=== PATIENT | male | born 1945 | race Caucasian/White ===

== ENCOUNTER 2022-01-28 11:14 | Inpatient (IN) | payer MEDICARE, OTHER ==
[~2022-01-28] VITALS: Ht 177.8 cm; Wt 59.0 kg
[~2022-01-28 11:14] MED LIST: LEVOTHYROXINE200 MC1 PO; Z FERROUS GLUCON PO; Z.0.GEMFIBROZIL600 M PO; Z.0.OMEPRAZOLE20 M1 PO; Z.0.SIMVASTATIN40 MG PO; [UNRECOGNIZED DRUG - OTHER] PO
[2022-01-28] MEDS ORDERED: SODIUM CHLORIDE FLUSH 10 ML SYR IV PRN (12:15)
[2022-01-28 12:21] LABS: BASOPHILS % 0.4 % (0.0-1.0); EOSINOPHILS # (AUTO) 0.4 (0.0-0.4); EOSINOPHILS % 4.2 % (0.0-6.0); HEMATOCRIT 35.5 % (38.2-49.6); HEMOGLOBIN 11.9 g/dL (14.0-18.0); LYMPHOCYTES % 23.5 % (18.0-39.1); MEAN CORPUSCULAR HEMOGLOBIN 30.8 pg (28-32); MEAN CORPUSCULAR HGB CONC 33.5 g/dL (31-35); MONOCYTES # (AUTO) 0.9 (0.2-0.8); NEUTROPHILS # (AUTO) 5.1 (2.1-6.9); NEUTROPHILS % 60.7 % (38.7-80.0); PLATELET COUNT 515 x10e3/uL (140-360); RED BLOOD COUNT 3.86 x10e6/uL (4.3-5.7); RED CELL DISTRIBUTION WIDTH 13.5 % (11.7-14.4)
[2022-01-28 12:35] LABS: PARTIAL THROMBOPLASTIN TIME 31.5 seconds (23.8-35.5)
[2022-01-28 12:40] LABS: INR 0.98; PROTHROMBIN TIME 13.9 seconds (11.9-14.5)
[2022-01-28 12:45] LABS: ALANINE AMINOTRANSFERASE 30 IU/L (0-55); ALBUMIN 2.6 g/dL (3.5-5.0); ALBUMIN/GLOBULIN RATIO 0.5 (0.8-2.0); ALKALINE PHOSPHATASE 79 IU/L (40-150); ANION GAP 13.2 mmol/L (8-16); BLOOD UREA NITROGEN 15 mg/dL (7-26); BUN/CREATININE RATIO 25 (6-25); CALCIUM 10.6 mg/dL (8.4-10.2); CARBON DIOXIDE 25 mmol/L (22-29); CHLORIDE 95 mmol/L (98-107); CREATINE KINASE 12 IU/L (30-200); EST GLOMERULAR FILTRATION RATE 131 ML/MIN (60-); GLUCOSE 88 mg/dL (74-118); POTASSIUM 3.2 mmol/L (3.5-5.1); SODIUM 130 mmol/L (136-145)
[2022-01-28] MEDS: SODIUM CHLORIDE 0.9% 1000ML 1,000 ML IV SCH ×2 (12:57→22:30)
[2022-01-28 13:25] LABS: AMPHETAMINES SCREEN,URINE NEGATIVE (NEGATIVE); BENZODIAZEPINES SCREEN,URINE NEGATIVE (NEGATIVE); PHENCYCLIDINE SCREEN,URINE NEGATIVE (NEGATIVE)
[2022-01-28 13:26] LABS: CLARITY,URINE CLEAR (CLEAR); COLOR,URINE YELLOW (YELLOW); LEUKOCYTE ESTERASE ,URINE NEGATIVE (NEGATIVE)
[2022-01-28 13:27] LABS: KETONES,URINE NEGATIVE (NEGATIVE); NITRITE,URINE NEGATIVE (NEGATIVE); PROTEIN,URINE DIPSTICK NEGATIVE (NEGATIVE); URINE UROBILINOGEN 0.2 mg/dL (0.2 - 1)
[2022-01-28 13:30] LABS: AMORPHOUS SEDIMENT,URINE FEW (FEW); BACTERIA,URINE MODERATE /HPF; EPITHELIAL CELLS,URINE FEW /LPF; RBC,URINE 0-5 /HPF (0-5); WBC,URINE (MAN) 0-5 /HPF (0-5)
[2022-01-28] MEDS ORDERED: ONDANSETRON HCL INJ 2MG/ML 2ML 2 MG/ML VIAL IV PRN (16:15)
[2022-01-29 07:07] LABS: BASOPHILS % 0.4 % (0.0-1.0); EOSINOPHILS # (AUTO) 0.2 (0.0-0.4); EOSINOPHILS % 3.2 % (0.0-6.0); HEMATOCRIT 34.9 % (38.2-49.6); HEMOGLOBIN 11.5 g/dL (14.0-18.0); LYMPHOCYTES # (AUTO) 1.4 (1.0-3.2); MEAN CORPUSCULAR HEMOGLOBIN 30.7 pg (28-32); MEAN CORPUSCULAR VOLUME 93.3 fL (81-99); MONOCYTES # (AUTO) 0.8 (0.2-0.8); MONOCYTES % 12.2 % (4.4-11.3); NEUTROPHILS # (AUTO) 4.3 (2.1-6.9); NEUTROPHILS % 62.9 % (38.7-80.0); PLATELET COUNT 435 x10e3/uL (140-360); RED BLOOD COUNT 3.74 x10e6/uL (4.3-5.7); RED CELL DISTRIBUTION WIDTH 13.4 % (11.7-14.4)
[2022-01-29 08:35] LABS: ALBUMIN 2.8 g/dL (3.5-5.0); ALBUMIN/GLOBULIN RATIO 0.6 (0.8-2.0); ANION GAP 14.8 mmol/L (8-16); CREATININE, SERUM 0.6 mg/dL (0.72-1.25); POTASSIUM 3.8 mmol/L (3.5-5.1)
[2022-01-29] MEDS: SODIUM CHLORIDE 0.9% 1000ML 1,000 ML IV SCH ×2 (08:49→16:23)
[2022-01-29] MEDS ORDERED: ASPIRIN81 MG PO (10:14)
[2022-01-29] MEDS ORDERED: FLUDROCORTISON0.1 MG PO (10:14)
[2022-01-29] MEDS ORDERED: PANTOPRAZOLE SO40 MG PO (10:14)
[2022-01-29] MEDS ORDERED: SODIUM CHLORI1000 ML PO (10:14)
[2022-01-29] MEDS ORDERED: FLOMAX0.4 MG PO (10:14)
[2022-01-29] MEDS ORDERED: MEGESTROL ACETA40 MG PO (10:14)
[2022-01-29] MEDS ORDERED: ATORVASTATIN CA20 MG PO (10:15)
[2022-01-29 14:11] VITALS: BP 121/72
[2022-01-29 14:54] VITALS: BP 121/72
[2022-01-29 14:59] VITALS: BP 121/72
[2022-01-29] MEDS: MEGESTROL ACETATE 40 MG TAB PO SCH (16:23)
[2022-01-29] MEDS: FLUDROCORTISONE ACETATE 0.1 MG TAB PO SCH (16:23)
[2022-01-29 16:26] VITALS: BP 148/81
[2022-01-29] MEDS ORDERED: Vancomycin IV 1 GM in SODIUM CHLORIDE 0.9% 250ML 250 ML IV ONE (18:45)
[2022-01-29] MEDS ORDERED: Vancomycin IV 1 GM in SODIUM CHLORIDE 0.9% 250ML 250 ML IV SCH (19:45)
[2022-01-29 20:00] VITALS: BP 143/80
[2022-01-29] MEDS: ATORVASTATIN 20 MG TAB PO SCH (20:49)
[2022-01-30] VITALS (8 sets, daily range): BP systolic 102–149; BP diastolic 60–99
[2022-01-30] MEDS: LEVOTHYROXINE SODIUM 125 MCG TAB PO SCH (06:00)
[2022-01-30] MEDS: LEVOTHYROXINE SODIUM 100 MCG TAB PO SCH (06:00)
[2022-01-30] MEDS: SODIUM CHLORIDE 0.9% 1000ML 1,000 ML IV SCH ×2 (06:00→17:09)
[2022-01-30] MEDS: PANTOPRAZOLE SOD 40 MG TABEC PO SCH (09:48)
[2022-01-30] MEDS: TAMSULOSIN HCL 0.4 MG CAP PO SCH (09:48)
[2022-01-30] MEDS: MEGESTROL ACETATE 40 MG TAB PO SCH ×2 (09:48→17:09)
[2022-01-30] MEDS: ASPIRIN 81 MG CHEW TAB PO SCH (09:48)
[2022-01-30] MEDS: FLUDROCORTISONE ACETATE 0.1 MG TAB PO SCH ×2 (09:48→17:09)
[2022-01-30] MEDS: Vancomycin IV 1 GM in SODIUM CHLORIDE 0.9% 250ML 250 ML IV SCH (19:50)
[2022-01-30] MEDS: ATORVASTATIN 20 MG TAB PO SCH (20:23)
[2022-01-31] VITALS (8 sets, daily range): BP systolic 96–161; BP diastolic 54–83
[2022-01-31] MEDS: SODIUM CHLORIDE 0.9% 1000ML 1,000 ML IV SCH ×2 (05:30→10:52)
[2022-01-31] MEDS: LEVOTHYROXINE SODIUM 100 MCG TAB PO SCH (06:00)
[2022-01-31] MEDS: LEVOTHYROXINE SODIUM 125 MCG TAB PO SCH (06:00)
[2022-01-31] MEDS ORDERED: MULTIVITAMINS1 EAC6 PO (08:16)
[2022-01-31] MEDS ORDERED: CEPHALEXIN500 MG PO (08:16)
[2022-01-31] MEDS: PANTOPRAZOLE SOD 40 MG TABEC PO SCH (10:05)
[2022-01-31] MEDS: MEGESTROL ACETATE 40 MG TAB PO SCH ×2 (10:05→17:00)
[2022-01-31] MEDS: TAMSULOSIN HCL 0.4 MG CAP PO SCH (10:05)
[2022-01-31] MEDS: ASPIRIN 81 MG CHEW TAB PO SCH (10:05)
[2022-01-31] MEDS: FLUDROCORTISONE ACETATE 0.1 MG TAB PO SCH ×2 (10:05→17:00)
[2022-01-31] MEDS ORDERED: ONDANSETRON HCL 4 MG ORAL DISINTEGRATING TAB PO PRN (10:15)
[2022-01-31] MEDS: Vancomycin IV 1 GM in SODIUM CHLORIDE 0.9% 250ML 250 ML IV SCH (20:15)
[2022-01-31] MEDS: ATORVASTATIN 20 MG TAB PO SCH (21:00)
[2022-02-01] VITALS: BP 132/76
[2022-02-01] MEDS: SODIUM CHLORIDE 0.9% 1000ML 1,000 ML IV SCH ×2 (01:00→09:37)
[2022-02-01 04:00] VITALS: BP 117/78
[2022-02-01] MEDS: LEVOTHYROXINE SODIUM 125 MCG TAB PO SCH (05:47)
[2022-02-01] MEDS: LEVOTHYROXINE SODIUM 100 MCG TAB PO SCH (05:47)
[2022-02-01 07:49] VITALS: BP 127/71
[2022-02-01 07:58] VITALS: BP 127/71
[2022-02-01] MEDS: PANTOPRAZOLE SOD 40 MG TABEC PO SCH (09:28)
[2022-02-01] MEDS: MEGESTROL ACETATE 40 MG TAB PO SCH (09:28)
[2022-02-01] MEDS: FLUDROCORTISONE ACETATE 0.1 MG TAB PO SCH (09:28)
[2022-02-01] MEDS: ASPIRIN 81 MG CHEW TAB PO SCH (09:28)
[2022-02-01] MEDS: TAMSULOSIN HCL 0.4 MG CAP PO SCH (09:28)
[2022-02-01 11:45] VITALS: BP 110/62
[2022-02-01 15:59] VITALS: BP 103/66
== END 2022-02-01 16:42 | DRG 689 ==
LOC: ER 11:56 → ERHOLD 16:02 → MED/SURG3 01-29 14:00
PROVIDERS: ADMIT Internal Medicine; ATTEND Internal Medicine
DX: N39.0 Urinary tract infection, site not specified (principal); E43 Unspecified severe protein-calorie malnutrition; Z68.1 Body mass index [BMI] 19.9 or less, adult; E87.1 Hypo-osmolality and hyponatremia; C45.0 Mesothelioma of pleura; E87.6 Hypokalemia; E83.52 Hypercalcemia; J61 Pneumoconiosis due to asbestos and other mineral fibers; E03.9 Hypothyroidism, unspecified; Z87.891 Personal history of nicotine dependence; Z85.21 Personal history of malignant neoplasm of larynx; E78.5 Hyperlipidemia, unspecified; Z90.02 Acquired absence of larynx; Z20.822 Contact with and (suspected) exposure to COVID-19
CPT/HCPCS: 36415; 70450; 71045; 80053; 80307; 81001; 82550; 82553; 83605; 83880; 83970; 84484; 85025; 85610; 85730; 87040; 87071; 87086; 87205; 93005; 96361; 97139; 99284; J0696; J3370; J7030; J7050; U0002

== ENCOUNTER 2022-06-03 14:08 | Inpatient (IN) | payer MEDICARE, OTHER ==
[~2022-06-03] VITALS: Ht 177.8 cm; Wt 54.4 kg
[~2022-06-03 14:08] MED LIST changes: +ASPIRIN81 MG PO; +ATORVASTATIN CA20 MG PO; +CEPHALEXIN500 MG PO; +FLOMAX0.4 MG PO; +FLUDROCORTISON0.1 MG PO; +MEGESTROL ACETA40 MG PO; +MULTIVITAMINS1 EAC6 PO; +PANTOPRAZOLE SO40 MG PO; +SODIUM CHLORI1000 ML PO
[2022-06-03] MEDS ORDERED: DILTIAZEM HCL 5 MG/ML 5 ML VIAL IV STA (14:29)
[2022-06-03] MEDS ORDERED: SODIUM CHLORIDE 0.9% 1000ML 1,000 ML IV STA (14:29)
[2022-06-03] MEDS ORDERED: DILTIAZEM HCL VIAL 5 ML ONE (14:38)
[2022-06-03] MEDS ORDERED: SODIUM CHLORIDE 0.9% 1000ML 1,000 ML ONE (14:41)
[2022-06-03 14:44] LABS: BASOPHILS % 0.2 % (0.0-1.0); HEMATOCRIT 32.6 % (38.2-49.6); HEMOGLOBIN 11.1 g/dL (14.0-18.0); LYMPHOCYTES # (AUTO) 1.2 (1.0-3.2); LYMPHOCYTES % 6.6 % (18.0-39.1); MEAN CORPUSCULAR HEMOGLOBIN 29.5 pg (28-32); MEAN CORPUSCULAR VOLUME 86.7 fL (81-99); MONOCYTES # (AUTO) 1.3 (0.2-0.8); MONOCYTES % 7.2 % (4.4-11.3); NEUTROPHILS # (AUTO) 15.1 (2.1-6.9); NEUTROPHILS % 85.5 % (38.7-80.0); PLATELET COUNT 251 x10e3/uL (140-360); RED BLOOD COUNT 3.76 x10e6/uL (4.3-5.7); RED CELL DISTRIBUTION WIDTH 14.9 % (11.7-14.4)
[2022-06-03 14:48] LABS: INR 1.1; PROTHROMBIN TIME 15.2 seconds (11.9-14.5)
[2022-06-03 14:57] LABS: ALBUMIN 2.8 g/dL (3.5-5.0); ALBUMIN/GLOBULIN RATIO 0.9 (0.8-2.0); ANION GAP 21.4 mmol/L (8-16); CALCIUM 8.6 mg/dL (8.4-10.2); CREATININE, SERUM 0.8 mg/dL (0.72-1.25); POTASSIUM 3.4 mmol/L (3.5-5.1)
[2022-06-03 14:59] LABS: MAGNESIUM 1.1 MG/DL (1.3-2.1)
[2022-06-03] MEDS ORDERED: METOPROLOL TARTRATE INJ 1 MG/ML VIAL IV ONE (15:00)
[2022-06-03 15:05] LABS: CREATINE KINASE MB 1.1 ng/mL (0-5.0)
[2022-06-03] MEDS ORDERED: SODIUM CHLORIDE 0.9% 1000ML 1,000 ML IV ONE (15:30)
[2022-06-03] MEDS ORDERED: MAGNESIUM SULF 1GRAM/DEXTROSE 200 ML IV ONE (15:30)
[2022-06-03] MEDS ORDERED: ENOXAPARIN SODIUM INJ 100 MG/ML SYR SC ONE (15:45)
[2022-06-03] MEDS ORDERED: IOPAMIDOL 370 MG/ML 100 ML INFUS..BTL INJ ONE (15:49)
[2022-06-03] MEDS ORDERED: ENOXAPARIN SOD INJ 60 MG/0.6 ML SYR SC ONE (17:01)
[2022-06-03] MEDS: FAMOTIDINE 20 MG/2 ML VIAL IV SCH (17:45)
[2022-06-03] MEDS: METOPROLOL TARTRATE 25 MG TAB PO SCH ×2 (17:45→20:11)
[2022-06-03] MEDS: KCL 20MEQ/.9 SOD CHL 1,000 ML IV SCH (17:53)
[2022-06-03 19:39] VITALS: BP 97/59
[2022-06-03 20:00] VITALS: BP 97/59
[2022-06-03] MEDS: FLUDROCORTISONE ACETATE 0.1 MG TAB PO SCH (20:10)
[2022-06-03] MEDS: ATORVASTATIN 40 MG TAB PO SCH (20:10)
[2022-06-03] MEDS: MEGESTROL ACETATE 40 MG TAB PO SCH (20:10)
[2022-06-03 21:06] LABS: CLARITY,URINE CLEAR (CLEAR); COLOR,URINE YELLOW (YELLOW)
[2022-06-03 21:07] LABS: BACTERIA,URINE RARE /HPF; EPITHELIAL CELLS,URINE RARE /LPF; KETONES,URINE 2+ (NEGATIVE); LEUKOCYTE ESTERASE ,URINE NEGATIVE (NEGATIVE); NITRITE,URINE NEGATIVE (NEGATIVE); PROTEIN,URINE DIPSTICK NEGATIVE (NEGATIVE); RBC,URINE 0-5 /HPF (0-5); URINE UROBILINOGEN 0.2 mg/dL (0.2 - 1); WBC,URINE (MAN) 0-5 /HPF (0-5)
[2022-06-03 21:48] VITALS: BP 97/57
[2022-06-04] VITALS (8 sets, daily range): BP systolic 109–138; BP diastolic 63–78
[2022-06-04] MEDS: KCL 20MEQ/.9 SOD CHL 1,000 ML IV SCH (04:53)
[2022-06-04] MEDS: FAMOTIDINE 20 MG/2 ML VIAL IV SCH ×2 (05:29→17:33)
[2022-06-04 07:08] LABS: BASOPHILS % 0.1 % (0.0-1.0); EOSINOPHILS # (AUTO) 0.1 (0.0-0.4); EOSINOPHILS % 1.5 % (0.0-6.0); HEMATOCRIT 28.4 % (38.2-49.6); HEMOGLOBIN 9.4 g/dL (14.0-18.0); LYMPHOCYTES # (AUTO) 1.3 (1.0-3.2); LYMPHOCYTES % 15.3 % (18.0-39.1); MEAN CORPUSCULAR HEMOGLOBIN 29.2 pg (28-32); MEAN CORPUSCULAR HGB CONC 33.1 g/dL (31-35); MEAN CORPUSCULAR VOLUME 88.2 fL (81-99); MONOCYTES # (AUTO) 0.8 (0.2-0.8); MONOCYTES % 9.5 % (4.4-11.3); NEUTROPHILS % 73.2 % (38.7-80.0); PLATELET COUNT 226 x10e3/uL (140-360); RED BLOOD COUNT 3.22 x10e6/uL (4.3-5.7); RED CELL DISTRIBUTION WIDTH 14.6 % (11.7-14.4)
[2022-06-04 07:40] LABS: ALBUMIN 2.4 g/dL (3.5-5.0); ALBUMIN/GLOBULIN RATIO 0.8 (0.8-2.0); ANION GAP 12.8 mmol/L (8-16); CALCIUM 7.8 mg/dL (8.4-10.2); CHOL/HDL RATIO 3.9 (3.9-4.7); CREATININE, SERUM 0.59 mg/dL (0.72-1.25); MAGNESIUM 1.4 MG/DL (1.3-2.1)
[2022-06-04 07:43] LABS: POTASSIUM 2.8 mmol/L (3.5-5.1)
[2022-06-04 07:50] LABS: CREATINE KINASE MB 4.8 ng/mL (0-5.0)
[2022-06-04] MEDS: ENOXAPARIN SOD INJ 60 MG/0.6 ML SYR SC SCH ×3 (08:15→21:00)
[2022-06-04] MEDS ORDERED: POTASSIUM CHLORIDE 20MEQ/100ML 100 ML IV ONE ×2 (08:23→20:00)
[2022-06-04] MEDS ORDERED: POTASSIUM CHLORIDE 20 MEQ TAB CR PO STA ×2 (08:37→17:45)
[2022-06-04] MEDS: METOPROLOL TARTRATE 25 MG TAB PO SCH ×2 (09:00→21:00)
[2022-06-04] MEDS: ASPIRIN 81 MG ENTERIC COATED PO SCH (09:00)
[2022-06-04] MEDS: MULTIVITAMINS/MINERALS TAB PO SCH (09:00)
[2022-06-04] MEDS: MEGESTROL ACETATE 40 MG TAB PO SCH ×2 (09:00→17:00)
[2022-06-04] MEDS: TAMSULOSIN HCL 0.4 MG CAP PO SCH (09:00)
[2022-06-04] MEDS: FLUDROCORTISONE ACETATE 0.1 MG TAB PO SCH ×2 (09:00→17:00)
[2022-06-04] MEDS: PANTOPRAZOLE SOD 40 MG TABEC PO SCH (09:00)
[2022-06-04] MEDS ORDERED: MAGNESIUM SULFATE 2GM/50ML 50 ML IV ONE (14:15)
[2022-06-04] MEDS ORDERED: SODIUM CHLORIDE 0.9% 250ML 250 ML ONE (15:28)
[2022-06-04 17:11] LABS: CREATINE KINASE MB 11.2 ng/mL (0-5.0)
[2022-06-04] MEDS: ATORVASTATIN 40 MG TAB PO SCH (21:00)
[2022-06-05] VITALS (8 sets, daily range): BP systolic 94–137; BP diastolic 56–80
[2022-06-05] MEDS: FAMOTIDINE 20 MG/2 ML VIAL IV SCH ×2 (05:44→17:24)
[2022-06-05] MEDS: MULTIVITAMINS/MINERALS TAB PO SCH (09:00)
[2022-06-05] MEDS: PANTOPRAZOLE SOD 40 MG TABEC PO SCH (09:00)
[2022-06-05 09:09] LABS: ANION GAP 10.7 mmol/L (8-16); CREATININE, SERUM 0.57 mg/dL (0.72-1.25); MAGNESIUM 1.8 MG/DL (1.3-2.1); PHOSPHORUS 1.8 MG/DL (2.3-4.7)
[2022-06-05 09:14] LABS: POTASSIUM 2.7 mmol/L (3.5-5.1)
[2022-06-05] MEDS: FLUDROCORTISONE ACETATE 0.1 MG TAB PO SCH ×2 (09:41→17:24)
[2022-06-05] MEDS: METOPROLOL TARTRATE 25 MG TAB PO SCH ×2 (09:41→21:00)
[2022-06-05] MEDS: MEGESTROL ACETATE 40 MG TAB PO SCH ×2 (09:43→17:24)
[2022-06-05] MEDS: ASPIRIN 81 MG ENTERIC COATED PO SCH (09:43)
[2022-06-05] MEDS: TAMSULOSIN HCL 0.4 MG CAP PO SCH (09:44)
[2022-06-05] MEDS: ENOXAPARIN SOD INJ 60 MG/0.6 ML SYR SC SCH ×2 (09:48→21:00)
[2022-06-05] MEDS ORDERED: POTASSIUM CHLORIDE 20 MEQ TAB CR PO ONE (11:00)
[2022-06-05] MEDS ORDERED: POTASSIUM CHLORIDE 20MEQ/100ML 100 ML IV ONE (11:00)
[2022-06-05 16:31] LABS: CREATINE KINASE MB 5.2 ng/mL (0-5.0)
[2022-06-05] MEDS: POTASSIUM CHLORIDE 20 MEQ TAB CR PO SCH ×2 (17:16→23:32)
[2022-06-05] MEDS: ATORVASTATIN 40 MG TAB PO SCH (21:00)
[2022-06-06] VITALS (8 sets, daily range): BP systolic 93–131; BP diastolic 55–71
[2022-06-06] MEDS: FAMOTIDINE 20 MG/2 ML VIAL IV SCH (05:03)
[2022-06-06] MEDS: POTASSIUM CHLORIDE 20 MEQ TAB CR PO SCH (05:04)
[2022-06-06 06:13] LABS: ANION GAP 12.4 mmol/L (8-16); BLOOD UREA NITROGEN < 5 mg/dL (7-26); CALCIUM 7.5 mg/dL (8.4-10.2); CARBON DIOXIDE 27 mmol/L (22-29); CHLORIDE 100 mmol/L (98-107); CREATININE, SERUM 0.52 mg/dL (0.72-1.25); GLUCOSE 91 mg/dL (74-118); SODIUM 137 mmol/L (136-145)
[2022-06-06 06:19] LABS: BUN/CREATININE RATIO 10 (6-25)
[2022-06-06 06:21] LABS: POTASSIUM 2.4 mmol/L (3.5-5.1)
[2022-06-06] MEDS ORDERED: POTASSIUM CHLORIDE 20 MEQ TAB CR PO ONE (08:00)
[2022-06-06] MEDS ORDERED: POTASSIUM CHLORIDE 20MEQ/100ML 100 ML IV ONE (08:00)
[2022-06-06] MEDS: ASPIRIN 81 MG ENTERIC COATED PO SCH (10:00)
[2022-06-06] MEDS: FLUDROCORTISONE ACETATE 0.1 MG TAB PO SCH ×2 (10:00→17:53)
[2022-06-06] MEDS: TAMSULOSIN HCL 0.4 MG CAP PO SCH (10:00)
[2022-06-06] MEDS: MULTIVITAMINS/MINERALS TAB PO SCH (10:00)
[2022-06-06] MEDS: METOPROLOL TARTRATE 25 MG TAB PO SCH ×2 (10:00→20:38)
[2022-06-06] MEDS: PANTOPRAZOLE SOD 40 MG TABEC PO SCH (10:00)
[2022-06-06] MEDS: MEGESTROL ACETATE 40 MG TAB PO SCH ×2 (10:00→17:52)
[2022-06-06] MEDS: APIXAB 2.5 MG TABLET PO SCH ×2 (10:00→17:53)
[2022-06-06] MEDS ORDERED: MAGNESIUM SULFATE 2GM/50ML 50 ML IV ONE (12:00)
[2022-06-06] MEDS ORDERED: POTASSIUM CHLORIDE 10MEQ EA PO ONE (17:00)
[2022-06-06] MEDS ORDERED: SODIUM CHLORIDE 0.9% 1000ML 1,000 ML ONE (17:11)
[2022-06-06] MEDS: POTASSIUM CHLORIDE 10MEQ/100ML 100 ML IV SCH ×3 (17:51→20:36)
[2022-06-06] MEDS: FAMOTIDINE 20 MG TAB PO SCH (17:53)
[2022-06-06] MEDS: AZITHROMYCIN 250 MG TAB PO SCH (20:38)
[2022-06-06] MEDS: ATORVASTATIN 40 MG TAB PO SCH (20:39)
[2022-06-06 23:29] LABS: MAGNESIUM 1.8 MG/DL (1.3-2.1)
[2022-06-06 23:30] LABS: POTASSIUM 3.5 mmol/L (3.5-5.1)
[2022-06-06] MEDS ORDERED: POTASSIUM CHLORIDE 20MEQ/15ML UDC NG STA (23:39)
[2022-06-07] VITALS (7 sets, daily range): BP systolic 102–119; BP diastolic 59–75
[2022-06-07] MEDS ORDERED: POTASSIUM CHLORIDE 20MEQ/100ML 100 ML IV ONE ×3 (00:15→15:00)
[2022-06-07 06:08] LABS: ANION GAP 11.8 mmol/L (8-16); BLOOD UREA NITROGEN < 5 mg/dL (7-26); CALCIUM 7.6 mg/dL (8.4-10.2); CARBON DIOXIDE 27 mmol/L (22-29); CHLORIDE 99 mmol/L (98-107); CREATININE, SERUM 0.52 mg/dL (0.72-1.25); GLUCOSE 90 mg/dL (74-118); SODIUM 135 mmol/L (136-145)
[2022-06-07 06:13] LABS: BUN/CREATININE RATIO 10 (6-25)
[2022-06-07 06:15] LABS: POTASSIUM 2.8 mmol/L (3.5-5.1)
[2022-06-07] MEDS: FAMOTIDINE 20 MG TAB PO SCH ×2 (06:19→17:30)
[2022-06-07] MEDS: PANTOPRAZOLE SOD 40 MG TABEC PO SCH (09:27)
[2022-06-07] MEDS: FLUDROCORTISONE ACETATE 0.1 MG TAB PO SCH ×2 (09:27→17:30)
[2022-06-07] MEDS: ASPIRIN 81 MG ENTERIC COATED PO SCH (09:27)
[2022-06-07] MEDS: MULTIVITAMINS/MINERALS TAB PO SCH (09:27)
[2022-06-07] MEDS: MEGESTROL ACETATE 40 MG TAB PO SCH ×2 (09:27→17:30)
[2022-06-07] MEDS: APIXAB 2.5 MG TABLET PO SCH ×2 (09:27→17:30)
[2022-06-07] MEDS: TAMSULOSIN HCL 0.4 MG CAP PO SCH (09:27)
[2022-06-07] MEDS: METOPROLOL TARTRATE 25 MG TAB PO SCH ×2 (09:36→20:29)
[2022-06-07] MEDS: MAGNESIUM OXIDE 400 MG TAB PO SCH ×2 (09:45→17:30)
[2022-06-07] MEDS ORDERED: POTASSIUM CHLORIDE 10MEQ EA PO SCH (10:00)
[2022-06-07] MEDS ORDERED: MAGNESIUM SULFATE 2GM/50ML 100 ML IV ONE (10:00)
[2022-06-07] MEDS: KCL 20 MEQ PACKET/ ORAL SOLN PO SCH ×3 (11:30→20:29)
[2022-06-07] MEDS ORDERED: POTASSIUM CHLORIDE 10MEQ/100ML 100 ML IV ONE (11:30)
[2022-06-07] MEDS ORDERED: CALCIUM GLUCONATE 10% INJ 9.3 MEQ in SODIUM CHLORIDE 0.9% 100 ML IV ONE (14:00)
[2022-06-07] MEDS ORDERED: PEG (High)/E-LYTE SOLN 4,000 ML BTL PO ONE (14:00)
[2022-06-07] MEDS ORDERED: POTASSIUM CHLORIDE 10MEQ/100ML 100 ML INJ ONE (17:00)
[2022-06-07] MEDS: AZITHROMYCIN 250 MG TAB PO SCH (20:28)
[2022-06-07] MEDS: ATORVASTATIN 40 MG TAB PO SCH (20:28)
[2022-06-08] VITALS (7 sets, daily range): BP systolic 109–145; BP diastolic 60–85
[2022-06-08 04:50] LABS: ALANINE AMINOTRANSFERASE 11 IU/L (0-55); ALBUMIN 2.2 g/dL (3.5-5.0); ALBUMIN/GLOBULIN RATIO 0.8 (0.8-2.0); ALKALINE PHOSPHATASE 53 IU/L (40-150); ANION GAP 11.4 mmol/L (8-16); BLOOD UREA NITROGEN < 5 mg/dL (7-26); CALCIUM 8.1 mg/dL (8.4-10.2); CARBON DIOXIDE 25 mmol/L (22-29); CHLORIDE 102 mmol/L (98-107); CREATININE, SERUM 0.53 mg/dL (0.72-1.25); GLUCOSE 94 mg/dL (74-118); MAGNESIUM 1.5 MG/DL (1.3-2.1); PHOSPHORUS 2.7 MG/DL (2.3-4.7); POTASSIUM 3.4 mmol/L (3.5-5.1); SODIUM 135 mmol/L (136-145)
[2022-06-08 04:54] LABS: BUN/CREATININE RATIO 9 (6-25)
[2022-06-08] MEDS: FAMOTIDINE 20 MG TAB PO SCH ×2 (06:46→18:00)
[2022-06-08] MEDS: MEGESTROL ACETATE 40 MG TAB PO SCH ×2 (09:00→17:00)
[2022-06-08] MEDS: MAGNESIUM OXIDE 400 MG TAB PO SCH ×2 (09:00→17:00)
[2022-06-08] MEDS: KCL 20 MEQ PACKET/ ORAL SOLN PO SCH ×2 (09:00→17:00)
[2022-06-08] MEDS: ASPIRIN 81 MG ENTERIC COATED PO SCH (09:00)
[2022-06-08] MEDS: TAMSULOSIN HCL 0.4 MG CAP PO SCH (09:00)
[2022-06-08] MEDS: FLUDROCORTISONE ACETATE 0.1 MG TAB PO SCH ×2 (09:00→17:00)
[2022-06-08] MEDS: METOPROLOL TARTRATE 25 MG TAB PO SCH ×2 (09:00→21:00)
[2022-06-08] MEDS: PANTOPRAZOLE SOD 40 MG TABEC PO SCH (09:00)
[2022-06-08] MEDS: MULTIVITAMINS/MINERALS TAB PO SCH (09:00)
[2022-06-08] MEDS: APIXAB 2.5 MG TABLET PO SCH ×2 (09:00→17:00)
[2022-06-08 16:48] LABS: MAGNESIUM 1.3 MG/DL (1.3-2.1); PHOSPHORUS 2.6 MG/DL (2.3-4.7); POTASSIUM 3.8 mmol/L (3.5-5.1)
[2022-06-08] MEDS: AZITHROMYCIN 250 MG TAB PO SCH (20:52)
[2022-06-08] MEDS: ATORVASTATIN 40 MG TAB PO SCH (21:00)
[2022-06-09 00:28] VITALS: BP 115/56
[2022-06-09 05:02] VITALS: BP 147/69
[2022-06-09] MEDS: FAMOTIDINE 20 MG TAB PO SCH (06:00)
[2022-06-09 06:14] LABS: ANION GAP 12.1 mmol/L (8-16); BLOOD UREA NITROGEN < 5 mg/dL (7-26); CALCIUM 7.9 mg/dL (8.4-10.2); CARBON DIOXIDE 25 mmol/L (22-29); CHLORIDE 102 mmol/L (98-107); CREATININE, SERUM 0.51 mg/dL (0.72-1.25); GLUCOSE 92 mg/dL (74-118); MAGNESIUM 1.2 MG/DL (1.3-2.1); PHOSPHORUS 3.1 MG/DL (2.3-4.7); POTASSIUM 3.1 mmol/L (3.5-5.1); SODIUM 136 mmol/L (136-145)
[2022-06-09 06:18] LABS: BUN/CREATININE RATIO 10 (6-25)
[2022-06-09] MEDS ORDERED: POTASSIUM CHLO20 MEQ PO (07:09)
[2022-06-09] MEDS ORDERED: ZITHROMAX500 MG PO (07:09)
[2022-06-09] MEDS ORDERED: MAG-OXIDE400 MG PO (07:09)
[2022-06-09] MEDS ORDERED: LOPRESSOR25 MG PO (07:09)
[2022-06-09] MEDS ORDERED: ELIQUIS2.5 MG PO (07:09)
[2022-06-09 07:38] VITALS: BP 130/74
[2022-06-09] MEDS: APIXAB 2.5 MG TABLET PO SCH (09:00)
[2022-06-09] MEDS: METOPROLOL TARTRATE 25 MG TAB PO SCH (09:00)
[2022-06-09] MEDS: TAMSULOSIN HCL 0.4 MG CAP PO SCH (09:00)
[2022-06-09] MEDS: ASPIRIN 81 MG ENTERIC COATED PO SCH (09:00)
[2022-06-09] MEDS: MEGESTROL ACETATE 40 MG TAB PO SCH (09:00)
[2022-06-09] MEDS: MAGNESIUM OXIDE 400 MG TAB PO SCH (09:00)
[2022-06-09] MEDS: MULTIVITAMINS/MINERALS TAB PO SCH (09:00)
[2022-06-09] MEDS: FLUDROCORTISONE ACETATE 0.1 MG TAB PO SCH (09:00)
[2022-06-09] MEDS: KCL 20 MEQ PACKET/ ORAL SOLN PO SCH (09:00)
[2022-06-09] MEDS ORDERED: PEPCID20 MG PO (09:16)
[2022-06-09] MEDS ORDERED: MAGNESIUM SULFATE 2GM/50ML 50 ML IV ONE ×3 (09:45→14:00)
[2022-06-09 11:26] VITALS: BP 137/82
[2022-06-09 12:28] VITALS: BP 137/82
[2022-06-09] MEDS ORDERED: POTASSIUM CHLORIDE 20MEQ/100ML 100 ML IV ONE (13:00)
[2022-06-09 17:03] VITALS: BP 113/68
== END 2022-06-09 18:02 | disposition home or self-care (01) | DRG 871 ==
LOC: ER 14:12 → ERHOLD 16:01 → MED/SURG 18:40 → MED/SURG2 06-08 17:00
PROVIDERS: ADMIT Internal Medicine; ATTEND Internal Medicine
DX: A41.9 Sepsis, unspecified organism (principal); E43 Unspecified severe protein-calorie malnutrition; I21.A1 Myocardial infarction type 2; Z68.1 Body mass index [BMI] 19.9 or less, adult; E27.40 Unspecified adrenocortical insufficiency; E83.51 Hypocalcemia; J92.0 Pleural plaque with presence of asbestos; K21.9 Gastro-esophageal reflux disease without esophagitis; E78.5 Hyperlipidemia, unspecified; E87.6 Hypokalemia; E03.9 Hypothyroidism, unspecified; Z85.21 Personal history of malignant neoplasm of larynx; N40.0 Benign prostatic hyperplasia without lower urinary tract symptoms; E86.0 Dehydration; I48.0 Paroxysmal atrial fibrillation; Z79.01 Long term (current) use of anticoagulants; D63.8 Anemia in other chronic diseases classified elsewhere; E83.42 Hypomagnesemia
CPT/HCPCS: 36415; 71045; 71260; 80048; 80053; 80061; 81001; 82550; 82553; 83605; 83735; 83880; 83930; 83935; 84100; 84132; 84133; 84436; 84443; 84479; 84480; 84481; 84484; 85025; 85379; 85610; 85730; 87040; 87086; 93005; 94799; 99251; 99284; J0456; J0610; J0696; J1650; J3475; J3480; J7030; J7050; Q9967

== ENCOUNTER 2022-08-11 08:51 | Inpatient (IN) | payer MEDICARE, OTHER ==
[~2022-08-11] VITALS: Ht 177.8 cm; Wt 54.4 kg
[~2022-08-11 08:51] MED LIST changes: +ELIQUIS2.5 MG PO; +LOPRESSOR25 MG PO; +MAG-OXIDE400 MG PO; +PEPCID20 MG PO; +POTASSIUM CHLO20 MEQ PO; +ZITHROMAX500 MG PO
[2022-08-11] MEDS ORDERED: ONDANSETRON HCL INJ 2MG/ML 2ML 2 MG/ML VIAL IV STA (09:29)
[2022-08-11] MEDS ORDERED: SODIUM CHLORIDE 0.9% 1000ML 1,000 ML IV STA (09:29)
[2022-08-11 09:49] LABS: BASOPHILS % 0.5 % (0.0-1.0); EOSINOPHILS # (AUTO) 0.1 (0.0-0.4); EOSINOPHILS % 1.3 % (0.0-6.0); HEMATOCRIT 41.4 % (38.2-49.6); LYMPHOCYTES # (AUTO) 1.6 (1.0-3.2); LYMPHOCYTES % 19.9 % (18.0-39.1); MEAN CORPUSCULAR HEMOGLOBIN 29.9 pg (28-32); MEAN CORPUSCULAR HGB CONC 31.4 g/dL (31-35); MEAN CORPUSCULAR VOLUME 95.2 fL (81-99); MONOCYTES # (AUTO) 0.8 (0.2-0.8); MONOCYTES % 9.9 % (4.4-11.3); NEUTROPHILS # (AUTO) 5.6 (2.1-6.9); NEUTROPHILS % 68.3 % (38.7-80.0); PLATELET COUNT 335 x10e3/uL (140-360); RED BLOOD COUNT 4.35 x10e6/uL (4.3-5.7); RED CELL DISTRIBUTION WIDTH 14.7 % (11.7-14.4)
[2022-08-11 10:14] LABS: ALBUMIN 3.8 g/dL (3.5-5.0); ALBUMIN/GLOBULIN RATIO 1.2 (0.8-2.0); ANION GAP 19.1 mmol/L (8-16); CALCIUM 9.4 mg/dL (8.4-10.2); CREATININE, SERUM 0.74 mg/dL (0.72-1.25); MAGNESIUM 1.3 MG/DL (1.3-2.1); POTASSIUM 4.1 mmol/L (3.5-5.1)
[2022-08-11 10:20] LABS: CREATINE KINASE MB 0.6 ng/mL (0-5.0)
[2022-08-11 10:22] LABS: INR 1.1; PROTHROMBIN TIME 14.4 seconds (11.9-14.5)
[2022-08-11 10:23] LABS: PARTIAL THROMBOPLASTIN TIME 26.4 seconds (23.8-35.5)
[2022-08-11] MEDS ORDERED: IOPAMIDOL 370 MG/ML 100 ML INFUS..BTL INJ ONE (10:47)
[2022-08-11] MEDS ORDERED: ONDANSETRON HCL INJ 2MG/ML 2ML 2 MG/ML VIAL IV PRN (11:15)
[2022-08-11] MEDS: DEXTROSE 5%/0.9% SOD CHL 1,000 ML IV SCH ×2 (11:34→22:15)
[2022-08-11 14:37] VITALS: BP 143/76
[2022-08-11] MEDS ORDERED: METOPROLOL TARTRATE INJ 1 MG/ML VIAL IV SCH (14:45)
[2022-08-11 15:00] VITALS: BP 143/76
[2022-08-11 16:28] VITALS: BP 138/69
[2022-08-11] MEDS ORDERED: FERROUS SULFAT325 MG PO (18:00)
[2022-08-11] MEDS ORDERED: SYNTHROID75 MCG PO (18:00)
[2022-08-11] MEDS ORDERED: POTASSIUM40 MEQ/15 PO (18:00)
[2022-08-11 18:25] LABS: CREATINE KINASE MB 0.9 ng/mL (0-5.0)
[2022-08-11 20:00] VITALS: BP 104/58
[2022-08-11 21:00] VITALS: BP 104/58
[2022-08-11] MEDS: METOPROLOL TARTRATE INJ 1 MG/ML VIAL IV SCH (22:00)
[2022-08-12] VITALS: BP 107/58
[2022-08-12] MEDS: METOPROLOL TARTRATE INJ 1 MG/ML VIAL IV SCH ×4 (04:00→22:11)
[2022-08-12] MEDS: DEXTROSE 5%/0.9% SOD CHL 1,000 ML IV SCH ×3 (05:50→22:11)
[2022-08-12 05:53] LABS: BASOPHILS % 0.4 % (0.0-1.0); EOSINOPHILS # (AUTO) 0.4 (0.0-0.4); EOSINOPHILS % 4.5 % (0.0-6.0); HEMATOCRIT 35.2 % (38.2-49.6); HEMOGLOBIN 11.2 g/dL (14.0-18.0); LYMPHOCYTES # (AUTO) 1.5 (1.0-3.2); LYMPHOCYTES % 18.1 % (18.0-39.1); MEAN CORPUSCULAR HGB CONC 31.8 g/dL (31-35); MEAN CORPUSCULAR VOLUME 94.4 fL (81-99); MONOCYTES % 11.6 % (4.4-11.3); NEUTROPHILS # (AUTO) 5.3 (2.1-6.9); PLATELET COUNT 318 x10e3/uL (140-360); RED BLOOD COUNT 3.73 x10e6/uL (4.3-5.7); RED CELL DISTRIBUTION WIDTH 14.7 % (11.7-14.4)
[2022-08-12 06:36] LABS: ALBUMIN 3.1 g/dL (3.5-5.0); ANION GAP 11.6 mmol/L (8-16); CALCIUM 9.2 mg/dL (8.4-10.2); CREATININE, SERUM 0.76 mg/dL (0.72-1.25); POTASSIUM 3.6 mmol/L (3.5-5.1)
[2022-08-12 06:59] LABS: CREATINE KINASE MB 0.5 ng/mL (0-5.0)
[2022-08-12 07:56] VITALS: BP 112/68
[2022-08-12 07:58] VITALS: BP 112/68
[2022-08-12 09:48] LABS: MAGNESIUM 1.3 MG/DL (1.3-2.1); PHOSPHORUS 2.7 MG/DL (2.3-4.7)
[2022-08-12 11:58] VITALS: BP 115/69
[2022-08-12] MEDS ORDERED: PROPOFOL IV EMULSION 10 MG/ML 20 ML VIAL ONE (12:45)
[2022-08-12 15:40] VITALS: BP 138/83
[2022-08-12 20:08] VITALS: BP 138/83
[2022-08-13] MEDS: METOPROLOL TARTRATE INJ 1 MG/ML VIAL IV SCH ×4 (04:52→21:44)
[2022-08-13 07:45] VITALS: BP 120/72
[2022-08-13 08:21] VITALS: BP 120/72
[2022-08-13] MEDS: DEXTROSE 5%/0.9% SOD CHL 1,000 ML IV SCH ×2 (09:12→12:27)
[2022-08-13 11:44] VITALS: BP 95/54
[2022-08-13 12:38] LABS: ANION GAP 12.8 mmol/L (8-16); CREATININE, SERUM 0.61 mg/dL (0.72-1.25); PHOSPHORUS 2.1 MG/DL (2.3-4.7)
[2022-08-13 12:42] LABS: MAGNESIUM 0.9 MG/DL (1.3-2.1)
[2022-08-13 12:43] LABS: POTASSIUM 2.8 mmol/L (3.5-5.1)
[2022-08-13] MEDS ORDERED: MAGNESIUM SULFATE 2GM/50ML 100 ML IV ONE (13:30)
[2022-08-13] MEDS ORDERED: POTASSIUM CHLORIDE 20MEQ/100ML 300 ML IV ONE (14:00)
[2022-08-13 15:19] VITALS: BP 98/66
[2022-08-13 20:00] VITALS: BP 108/74
[2022-08-14] VITALS (7 sets, daily range): BP systolic 107–180; BP diastolic 58–86
[2022-08-14] MEDS: DEXTROSE 5%/0.9% SOD CHL 1,000 ML IV SCH ×4 (00:46→20:15)
[2022-08-14] MEDS: METOPROLOL TARTRATE INJ 1 MG/ML VIAL IV SCH ×4 (04:00→21:47)
[2022-08-14] MEDS ORDERED: Morphine 4mg INJECTION 4 MG/ML INJ IV ONE (11:00)
[2022-08-14 12:09] LABS: ANION GAP 13.7 mmol/L (8-16); CALCIUM 8.1 mg/dL (8.4-10.2); POTASSIUM 3.7 mmol/L (3.5-5.1)
[2022-08-14 12:28] LABS: CREATININE, SERUM 0.65 mg/dL (0.72-1.25)
[2022-08-14] MEDS: FAMOTIDINE 20 MG/2 ML VIAL IV SCH (17:45)
[2022-08-15] VITALS: BP 147/79
[2022-08-15 05:17] VITALS: BP 151/79
[2022-08-15] MEDS: METOPROLOL TARTRATE INJ 1 MG/ML VIAL IV SCH ×2 (05:30→09:12)
[2022-08-15 08:17] VITALS: BP 99/57
[2022-08-15 08:46] VITALS: BP 99/57
[2022-08-15 08:57] LABS: ANION GAP 14.1 mmol/L (8-16); BLOOD UREA NITROGEN < 5 mg/dL (7-26); CALCIUM 7.9 mg/dL (8.4-10.2); CARBON DIOXIDE 27 mmol/L (22-29); CHLORIDE 97 mmol/L (98-107); CREATININE, SERUM 0.54 mg/dL (0.72-1.25); GLUCOSE 117 mg/dL (74-118); PHOSPHORUS 2.6 MG/DL (2.3-4.7); POTASSIUM 3.1 mmol/L (3.5-5.1); SODIUM 135 mmol/L (136-145)
[2022-08-15] MEDS: FAMOTIDINE 20 MG/2 ML VIAL IV SCH (09:12)
[2022-08-15 09:19] LABS: BUN/CREATININE RATIO 9 (6-25)
[2022-08-15 09:20] LABS: MAGNESIUM 1.1 MG/DL (1.3-2.1)
[2022-08-15] MEDS ORDERED: MAGNESIUM SULFATE 2GM/50ML 50 ML IV ONE (10:15)
[2022-08-15] MEDS ORDERED: POTASSIUM CHLORIDE 10MEQ EA PO ONE (10:15)
[2022-08-15] MEDS ORDERED: MAGNESIUM OXID400 MG PO (10:43)
[2022-08-15] MEDS ORDERED: POTASSIUM CHLO20 ME1 PO (10:43)
[2022-08-15] MEDS ORDERED: PEPCID20 MG PO (10:44)
[2022-08-15 12:00] VITALS: BP 119/73
== END 2022-08-15 12:30 | disposition home or self-care (01) | DRG 393 ==
LOC: ER 09:22 → ERHOLD 11:06 → MED/SURG3 14:16
PROVIDERS: ADMIT Internal Medicine; ATTEND Internal Medicine
PROC: 0DC18ZZ Extirpation of Matter from Upper Esophagus, Via Natural or Artificial Opening Endoscopic (ICD-10-PCS; principal; 2022-08-12 14:39)
PROC: 0D718ZZ Dilation of Upper Esophagus, Via Natural or Artificial Opening Endoscopic (ICD-10-PCS; 2022-08-12 14:39)
DX: T18.128A Food in esophagus causing other injury, initial encounter (principal); E43 Unspecified severe protein-calorie malnutrition; Z68.1 Body mass index [BMI] 19.9 or less, adult; K22.10 Ulcer of esophagus without bleeding; E27.40 Unspecified adrenocortical insufficiency; K22.2 Esophageal obstruction; R13.10 Dysphagia, unspecified; K21.9 Gastro-esophageal reflux disease without esophagitis; E03.9 Hypothyroidism, unspecified; E83.42 Hypomagnesemia; R13.19 Other dysphagia; Y84.2 Radiological procedure and radiotherapy as the cause of abnormal reaction of the patient, or of later complication, without mention of misadventure at the time of the procedure; Z20.822 Contact with and (suspected) exposure to COVID-19; E78.5 Hyperlipidemia, unspecified; E86.0 Dehydration; Z85.21 Personal history of malignant neoplasm of larynx; I48.91 Unspecified atrial fibrillation; Z79.01 Long term (current) use of anticoagulants
CPT/HCPCS: 36415; 43235; 43450; 70491; 71045; 80048; 80053; 82550; 82553; 82948; 83735; 83880; 84100; 84484; 85025; 85610; 85730; 93005; 99284; J2270; J2405; J3475; J3480; J7030; J7042; Q9967

== ENCOUNTER 2022-11-30 15:03 | Inpatient (IN) | payer MEDICARE, OTHER ==
[~2022-11-30] VITALS: Ht 175.3 cm; Wt 54.1 kg
[~2022-11-30 15:03] MED LIST changes: +FERROUS SULFAT325 MG PO; +MAGNESIUM OXID400 MG PO; +POTASSIUM CHLO20 ME1 PO; +POTASSIUM40 MEQ/15 PO; +SYNTHROID75 MCG PO
[2022-11-30] MEDS ORDERED: SODIUM CHLORIDE 0.9% 1000ML 0 ML IV SCH (16:00)
[2022-11-30] MEDS ORDERED: CEFTRIAXONE 1 GM VIAL IV SCH (16:00)
[2022-11-30 16:27] LABS: BASOPHILS # (AUTO) 0.1 (0.0-0.1); BASOPHILS % 0.5 % (0.0-1.0); EOSINOPHILS % 0.1 % (0.0-6.0); HEMATOCRIT 25.8 % (38.2-49.6); HEMOGLOBIN 8.6 g/dL (14.0-18.0); LYMPHOCYTES # (AUTO) 0.5 (1.0-3.2); LYMPHOCYTES % 4.4 % (18.0-39.1); MEAN CORPUSCULAR HEMOGLOBIN 29.7 pg (28-32); MEAN CORPUSCULAR HGB CONC 33.3 g/dL (31-35); MONOCYTES # (AUTO) 0.8 (0.2-0.8); NEUTROPHILS # (AUTO) 9.6 (2.1-6.9); PLATELET COUNT 496 x10e3/uL (140-360); RED CELL DISTRIBUTION WIDTH 13.1 % (11.7-14.4)
[2022-11-30 16:36] LABS: INR 1.36; PROTHROMBIN TIME 17.3 seconds (11.9-14.5)
[2022-11-30 16:37] LABS: PARTIAL THROMBOPLASTIN TIME 41.9 seconds (23.8-35.5)
[2022-11-30 16:45] LABS: ALBUMIN 1.6 g/dL (3.5-5.0); ALBUMIN/GLOBULIN RATIO 0.3 (0.8-2.0); ANION GAP 13.1 mmol/L (8-16); CALCIUM 8.1 mg/dL (8.4-10.2); CREATININE, SERUM 0.64 mg/dL (0.72-1.25); POTASSIUM 4.1 mmol/L (3.5-5.1)
[2022-11-30] MEDS ORDERED: ONDANSETRON HCL INJ 2MG/ML 2ML 2 MG/ML VIAL IV PRN (18:15)
[2022-11-30] MEDS ORDERED: SODIUM CHLORIDE FLUSH 10 ML SYR INJ PRN (18:15)
[2022-11-30 20:00] VITALS: BP 120/78
[2022-11-30 20:30] VITALS: BP 120/78
[2022-11-30 20:30] LABS: CLARITY,URINE SL CLOUDY (CLEAR); COLOR,URINE AMBER (YELLOW); KETONES,URINE TRACE (NEGATIVE); LEUKOCYTE ESTERASE ,URINE NEGATIVE (NEGATIVE); NITRITE,URINE NEGATIVE (NEGATIVE); PROTEIN,URINE DIPSTICK 1+ (NEGATIVE); URINE UROBILINOGEN 0.2 mg/dL (0.2 - 1)
[2022-11-30 20:41] LABS: HYALINE CASTS 0-1 (0-1)
[2022-12-01 00:32] VITALS: BP 111/67
[2022-12-01 05:09] VITALS: BP 120/74
[2022-12-01] MEDS: LEVOTHYROXINE SODIUM 50 MCG TAB PO SCH (05:44)
[2022-12-01 06:30] LABS: ALBUMIN 1.7 g/dL (3.5-5.0); ALBUMIN/GLOBULIN RATIO 0.3 (0.8-2.0); ANION GAP 14.2 mmol/L (8-16); BASOPHILS % 0.2 % (0.0-1.0); CALCIUM 8.8 mg/dL (8.4-10.2); CREATININE, SERUM 0.65 mg/dL (0.72-1.25); HEMATOCRIT 28.7 % (38.2-49.6); HEMOGLOBIN 10.1 g/dL (14.0-18.0); LYMPHOCYTES # (AUTO) 0.6 (1.0-3.2); LYMPHOCYTES % 6.6 % (18.0-39.1); MEAN CORPUSCULAR HGB CONC 35.2 g/dL (31-35); MEAN CORPUSCULAR VOLUME 90.8 fL (81-99); MONOCYTES # (AUTO) 0.3 (0.2-0.8); MONOCYTES % 3.3 % (4.4-11.3); NEUTROPHILS % 88.9 % (38.7-80.0); PLATELET COUNT 485 x10e3/uL (140-360); POTASSIUM 4.2 mmol/L (3.5-5.1); RED BLOOD COUNT 3.16 x10e6/uL (4.3-5.7); RED CELL DISTRIBUTION WIDTH 13.5 % (11.7-14.4)
[2022-12-01 07:23] LABS: FERRITIN 1714.8 ng/mL (21.81-274.66)
[2022-12-01] MEDS: FERROUS SULFATE 325 MG TAB PO SCH ×2 (09:35→17:58)
[2022-12-01 09:50] VITALS: BP 114/71
[2022-12-01 16:49] VITALS: BP 164/93
[2022-12-01] MEDS: ENOXAPARIN SOD INJ 40 MG/0.4 ML SYR SC SCH (17:58)
[2022-12-01] MEDS ORDERED: SODIUM CHLORIDE 0.9% 250ML 250 ML ONE (18:15)
[2022-12-01] MEDS ORDERED: POTASSIUM CHLO20 ME1 PO (18:51)
[2022-12-01] MEDS ORDERED: FLUDROCORTISON0.1 MG PO (18:51)
[2022-12-01 20:00] VITALS: BP 123/77
[2022-12-01] MEDS: TAMSULOSIN HCL 0.4 MG CAP PO SCH (21:31)
[2022-12-01] MEDS: ATORVASTATIN 20 MG TAB PO SCH (21:31)
[2022-12-02] MEDS: LEVOTHYROXINE SODIUM 50 MCG TAB PO SCH (04:08)
[2022-12-02 05:49] VITALS: BP 101/66
[2022-12-02 05:56] LABS: BASOPHILS % 0.1 % (0.0-1.0); HEMATOCRIT 30.7 % (38.2-49.6); LYMPHOCYTES # (AUTO) 0.7 (1.0-3.2); LYMPHOCYTES % 6.8 % (18.0-39.1); MEAN CORPUSCULAR HEMOGLOBIN 29.4 pg (28-32); MEAN CORPUSCULAR HGB CONC 32.6 g/dL (31-35); MEAN CORPUSCULAR VOLUME 90.3 fL (81-99); MONOCYTES # (AUTO) 0.5 (0.2-0.8); MONOCYTES % 4.8 % (4.4-11.3); NEUTROPHILS # (AUTO) 9.3 (2.1-6.9); NEUTROPHILS % 87.2 % (38.7-80.0); PLATELET COUNT 502 x10e3/uL (140-360); RED CELL DISTRIBUTION WIDTH 13.1 % (11.7-14.4)
[2022-12-02 06:13] LABS: ALBUMIN 1.7 g/dL (3.5-5.0); ALBUMIN/GLOBULIN RATIO 0.3 (0.8-2.0); ANION GAP 15.1 mmol/L (8-16); CALCIUM 8.5 mg/dL (8.4-10.2); CREATININE, SERUM 0.62 mg/dL (0.72-1.25); MAGNESIUM 1.5 MG/DL (1.3-2.1); PHOSPHORUS 3.3 MG/DL (2.3-4.7); POTASSIUM 4.1 mmol/L (3.5-5.1)
[2022-12-02 08:33] VITALS: BP 107/71
[2022-12-02 08:48] VITALS: BP 107/71
[2022-12-02] MEDS: FERROUS SULFATE 325 MG TAB PO SCH ×2 (09:00→17:00)
[2022-12-02] MEDS: BALSAM PERU/CASTOR OIL 60 GM OINT...G. TP SCH (12:22)
[2022-12-02 12:32] VITALS: BP 101/64
[2022-12-02] MEDS ORDERED: ONDANSETRON HCL 4 MG ORAL DISINTEGRATING TAB PO PRN (14:00)
[2022-12-02 15:36] VITALS: BP 121/77
[2022-12-02] MEDS: ENOXAPARIN SOD INJ 40 MG/0.4 ML SYR SC SCH (17:30)
[2022-12-02 20:00] VITALS: BP 132/74
[2022-12-02] MEDS: TAMSULOSIN HCL 0.4 MG CAP PO SCH (20:51)
[2022-12-02] MEDS: ATORVASTATIN 20 MG TAB PO SCH (20:59)
[2022-12-03] VITALS (8 sets, daily range): BP systolic 109–135; BP diastolic 64–78
[2022-12-03] MEDS: LEVOTHYROXINE SODIUM 50 MCG TAB PO SCH (05:08)
[2022-12-03 07:01] LABS: BASOPHILS % 0.1 % (0.0-1.0); EOSINOPHILS % 0.1 % (0.0-6.0); HEMATOCRIT 29.9 % (38.2-49.6); HEMOGLOBIN 9.8 g/dL (14.0-18.0); LYMPHOCYTES # (AUTO) 1.2 (1.0-3.2); LYMPHOCYTES % 15.8 % (18.0-39.1); MEAN CORPUSCULAR HEMOGLOBIN 29.7 pg (28-32); MEAN CORPUSCULAR HGB CONC 32.8 g/dL (31-35); MEAN CORPUSCULAR VOLUME 90.6 fL (81-99); MONOCYTES # (AUTO) 0.7 (0.2-0.8); MONOCYTES % 9.3 % (4.4-11.3); NEUTROPHILS # (AUTO) 5.6 (2.1-6.9); NEUTROPHILS % 71.9 % (38.7-80.0); PLATELET COUNT 521 x10e3/uL (140-360)
[2022-12-03 07:19] LABS: ANION GAP 11.3 mmol/L (8-16); CALCIUM 8.6 mg/dL (8.4-10.2); CREATININE, SERUM 0.64 mg/dL (0.72-1.25); PHOSPHORUS 2.7 MG/DL (2.3-4.7); POTASSIUM 4.3 mmol/L (3.5-5.1)
[2022-12-03] MEDS: FERROUS SULFATE 325 MG TAB PO SCH ×2 (09:31→16:21)
[2022-12-03] MEDS: BALSAM PERU/CASTOR OIL 60 GM OINT...G. TP SCH (09:32)
[2022-12-03] MEDS: ENOXAPARIN SOD INJ 40 MG/0.4 ML SYR SC SCH (16:21)
[2022-12-03] MEDS: ATORVASTATIN 20 MG TAB PO SCH (21:10)
[2022-12-03] MEDS: TAMSULOSIN HCL 0.4 MG CAP PO SCH (21:10)
[2022-12-04] VITALS (8 sets, daily range): BP systolic 90–121; BP diastolic 60–77
[2022-12-04] MEDS: LEVOTHYROXINE SODIUM 50 MCG TAB PO SCH (06:04)
[2022-12-04 06:14] LABS: BASOPHILS % 0.1 % (0.0-1.0); EOSINOPHILS # (AUTO) 0.1 (0.0-0.4); HEMOGLOBIN 10.1 g/dL (14.0-18.0); LYMPHOCYTES # (AUTO) 1.6 (1.0-3.2); LYMPHOCYTES % 21.9 % (18.0-39.1); MEAN CORPUSCULAR HEMOGLOBIN 30.7 pg (28-32); MEAN CORPUSCULAR HGB CONC 33.7 g/dL (31-35); MEAN CORPUSCULAR VOLUME 91.2 fL (81-99); MONOCYTES # (AUTO) 0.7 (0.2-0.8); MONOCYTES % 8.9 % (4.4-11.3); NEUTROPHILS # (AUTO) 4.9 (2.1-6.9); NEUTROPHILS % 66.9 % (38.7-80.0); PLATELET COUNT 472 x10e3/uL (140-360); RED BLOOD COUNT 3.29 x10e6/uL (4.3-5.7); RED CELL DISTRIBUTION WIDTH 13.2 % (11.7-14.4)
[2022-12-04 06:43] LABS: ALBUMIN 1.8 g/dL (3.5-5.0); ALBUMIN/GLOBULIN RATIO 0.4 (0.8-2.0); ANION GAP 11.9 mmol/L (8-16); CALCIUM 8.5 mg/dL (8.4-10.2); CREATININE, SERUM 0.64 mg/dL (0.72-1.25); PHOSPHORUS 2.8 MG/DL (2.3-4.7); POTASSIUM 3.9 mmol/L (3.5-5.1)
[2022-12-04] MEDS: FERROUS SULFATE 325 MG TAB PO SCH ×2 (11:08→16:10)
[2022-12-04] MEDS: BALSAM PERU/CASTOR OIL 60 GM OINT...G. TP SCH (11:08)
[2022-12-04] MEDS: ATORVASTATIN 20 MG TAB PO SCH (21:25)
[2022-12-04] MEDS: TAMSULOSIN HCL 0.4 MG CAP PO SCH (21:25)
[2022-12-05] VITALS (7 sets, daily range): BP systolic 85–116; BP diastolic 57–78
[2022-12-05] MEDS: LEVOTHYROXINE SODIUM 50 MCG TAB PO SCH (05:00)
[2022-12-05] MEDS: FERROUS SULFATE 325 MG TAB PO SCH (09:00)
[2022-12-05 10:31] LABS: BASOPHILS % 0.4 % (0.0-1.0); EOSINOPHILS # (AUTO) 0.3 (0.0-0.4); EOSINOPHILS % 3.2 % (0.0-6.0); HEMATOCRIT 30.4 % (38.2-49.6); HEMOGLOBIN 10.2 g/dL (14.0-18.0); LYMPHOCYTES # (AUTO) 1.9 (1.0-3.2); LYMPHOCYTES % 25.1 % (18.0-39.1); MEAN CORPUSCULAR HEMOGLOBIN 30.2 pg (28-32); MEAN CORPUSCULAR HGB CONC 33.6 g/dL (31-35); MEAN CORPUSCULAR VOLUME 89.9 fL (81-99); MONOCYTES # (AUTO) 0.6 (0.2-0.8); MONOCYTES % 7.5 % (4.4-11.3); NEUTROPHILS # (AUTO) 4.8 (2.1-6.9); NEUTROPHILS % 62.4 % (38.7-80.0); PLATELET COUNT 464 x10e3/uL (140-360); RED BLOOD COUNT 3.38 x10e6/uL (4.3-5.7); RED CELL DISTRIBUTION WIDTH 13.1 % (11.7-14.4)
[2022-12-05 10:47] LABS: ANION GAP 11.9 mmol/L (8-16); CALCIUM 8.6 mg/dL (8.4-10.2); CREATININE, SERUM 0.59 mg/dL (0.72-1.25); POTASSIUM 3.9 mmol/L (3.5-5.1)
[2022-12-05] MEDS ORDERED: SEVOFLURANE INHAL SOLN 250 ML PEN BTL ONE (12:33)
[2022-12-05] MEDS ORDERED: PROPOFOL IV EMULSION 10 MG/ML 20 ML VIAL ONE (12:33)
[2022-12-05] MEDS ORDERED: LIDOCAINE HCL 2% LOCAL INJ 5 ML SDV VIAL INJ ONE (12:33)
[2022-12-05] MEDS ORDERED: EPINEPHRINE HCL 1:1000 1ML 1 MG/ML AMP ONE ×2 (12:33→13:23)
[2022-12-05] MEDS ORDERED: VASOPRESSIN INJ 20 UNIT/ML VIAL ONE (12:33)
[2022-12-05] MEDS ORDERED: PHENYLEPHRINE HCL 1% 10 MG/ML VIAL ONE (12:33)
[2022-12-05] MEDS ORDERED: ONDANSETRON HCL INJ 2MG/ML 2ML 2 MG/ML VIAL ONE (12:33)
[2022-12-05] MEDS ORDERED: ROCURONIUM BROMIDE 10 MG/ML 5ML VIAL IV ONE (12:33)
[2022-12-05] MEDS ORDERED: POVIDONE IODINE 0.05% 0.05 % ML PO ONE (12:33)
[2022-12-05] MEDS: BALSAM PERU/CASTOR OIL 60 GM OINT...G. TP SCH (13:02)
[2022-12-05] MEDS ORDERED: SODIUM CHLORIDE 0.9% 250ML 250 ML ONE ×2 (13:19→13:27)
[2022-12-05] MEDS ORDERED: FENTANYL CITRATE/PF 100MCG/2 ML INJ ONE (13:34)
[2022-12-05] MEDS ORDERED: BUPIVACAINE 0.25% 30ML SDV ONE (13:35)
[2022-12-05] MEDS ORDERED: SUGAMMADEX SODIUM 200 MG/2 ML VIAL IV ONE (13:59)
[2022-12-05] MEDS ORDERED: ONDANSETRON HCL INJ 2MG/ML 2ML 2 MG/ML VIAL IV PRN (14:30)
[2022-12-05] MEDS: SODIUM CHLORIDE 0.9% 1000ML 1,000 ML IV SCH (15:04)
[2022-12-05] MEDS: HYDROMORPHONE 1MG/1ML INJ IV PRN (15:12)
[2022-12-05] MEDS ORDERED: ACETAMINOPHEN 1000 MG/100 ML IV PRN (17:00)
[2022-12-05] MEDS: TAMSULOSIN HCL 0.4 MG CAP PO SCH (20:24)
[2022-12-06] VITALS (8 sets, daily range): BP systolic 106–131; BP diastolic 73–99
[2022-12-06 05:05] LABS: BASOPHILS % 0.3 % (0.0-1.0); EOSINOPHILS # (AUTO) 0.2 (0.0-0.4); EOSINOPHILS % 2.2 % (0.0-6.0); HEMATOCRIT 30.5 % (38.2-49.6); LYMPHOCYTES # (AUTO) 1.4 (1.0-3.2); LYMPHOCYTES % 12.4 % (18.0-39.1); MEAN CORPUSCULAR HEMOGLOBIN 29.9 pg (28-32); MEAN CORPUSCULAR HGB CONC 32.8 g/dL (31-35); MONOCYTES # (AUTO) 0.7 (0.2-0.8); MONOCYTES % 5.8 % (4.4-11.3); NEUTROPHILS # (AUTO) 8.7 (2.1-6.9); PLATELET COUNT 442 x10e3/uL (140-360); RED BLOOD COUNT 3.35 x10e6/uL (4.3-5.7)
[2022-12-06 05:20] LABS: ANION GAP 13.1 mmol/L (8-16); CREATININE, SERUM 0.61 mg/dL (0.72-1.25); POTASSIUM 4.1 mmol/L (3.5-5.1)
[2022-12-06] MEDS: SODIUM CHLORIDE 0.9% 1000ML 1,000 ML IV SCH ×3 (05:34→20:21)
[2022-12-06] MEDS: BALSAM PERU/CASTOR OIL 60 GM OINT...G. TP SCH (17:52)
[2022-12-06] MEDS: TAMSULOSIN HCL 0.4 MG CAP PO SCH (20:21)
[2022-12-07] VITALS (8 sets, daily range): BP systolic 118–143; BP diastolic 65–85
[2022-12-07] MEDS: SODIUM CHLORIDE 0.9% 1000ML 1,000 ML IV SCH ×2 (05:53→17:44)
[2022-12-07 06:02] LABS: BASOPHILS % 0.5 % (0.0-1.0); EOSINOPHILS # (AUTO) 0.2 (0.0-0.4); EOSINOPHILS % 2.7 % (0.0-6.0); HEMATOCRIT 29.5 % (38.2-49.6); HEMOGLOBIN 9.8 g/dL (14.0-18.0); LYMPHOCYTES # (AUTO) 1.3 (1.0-3.2); LYMPHOCYTES % 14.4 % (18.0-39.1); MEAN CORPUSCULAR HEMOGLOBIN 31.7 pg (28-32); MEAN CORPUSCULAR HGB CONC 33.2 g/dL (31-35); MEAN CORPUSCULAR VOLUME 95.5 fL (81-99); MONOCYTES # (AUTO) 0.8 (0.2-0.8); MONOCYTES % 8.7 % (4.4-11.3); NEUTROPHILS # (AUTO) 6.4 (2.1-6.9); NEUTROPHILS % 72.3 % (38.7-80.0); PLATELET COUNT 296 x10e3/uL (140-360); RED BLOOD COUNT 3.09 x10e6/uL (4.3-5.7); RED CELL DISTRIBUTION WIDTH 14.1 % (11.7-14.4)
[2022-12-07 06:23] LABS: CALCIUM 7.8 mg/dL (8.4-10.2); CREATININE, SERUM 0.58 mg/dL (0.72-1.25); PHOSPHORUS 2.5 MG/DL (2.3-4.7)
[2022-12-07 06:25] LABS: MAGNESIUM 1.1 MG/DL (1.3-2.1)
[2022-12-07] MEDS ORDERED: MAGNESIUM SULFATE 2GM/50ML 50 ML IV ONE (07:30)
[2022-12-07] MEDS: BALSAM PERU/CASTOR OIL 60 GM OINT...G. TP SCH (17:44)
[2022-12-07] MEDS: HYDROMORPHONE 1MG/1ML INJ IV PRN (18:26)
[2022-12-07] MEDS ORDERED: ATORVASTATIN 40 MG TAB PEG SCH (21:00)
[2022-12-07] MEDS: TAMSULOSIN HCL 0.4 MG CAP PO SCH (23:04)
[2022-12-08 01:06] VITALS: BP 102/65
[2022-12-08] MEDS ORDERED: LEVOTHYROXINE SODIUM 100 MCG TAB PEG SCH (06:00)
[2022-12-08] MEDS ORDERED: LEVOTHYROXINE SODIUM 75 MCG TAB PEG SCH (06:00)
[2022-12-08] MEDS: SODIUM CHLORIDE 0.9% 1000ML 1,000 ML IV SCH (06:05)
[2022-12-08 06:21] LABS: ANION GAP 13.1 mmol/L (8-16); CALCIUM 7.8 mg/dL (8.4-10.2); CREATININE, SERUM 0.55 mg/dL (0.72-1.25); MAGNESIUM 1.3 MG/DL (1.3-2.1); PHOSPHORUS 2.6 MG/DL (2.3-4.7); POTASSIUM 3.1 mmol/L (3.5-5.1)
[2022-12-08 06:27] VITALS: BP 102/65
[2022-12-08] MEDS ORDERED: POTASSIUM CHLORIDE 20 MEQ TAB CR PO ONE (08:30)
[2022-12-08] MEDS ORDERED: KCL 20 MEQ PACKET/ ORAL SOLN PEG SCH (09:00)
[2022-12-08] MEDS ORDERED: FERROUS SULFATE 300 MG/5 ML LIQD PEG SCH (09:00)
[2022-12-08] MEDS ORDERED: FLUDROCORTISONE ACETATE 0.1 MG TAB PEG SCH (09:00)
[2022-12-08 09:28] VITALS: BP 119/64
[2022-12-08] MEDS: HYDROMORPHONE 1MG/1ML INJ IV PRN (10:35)
[2022-12-08] MEDS: BALSAM PERU/CASTOR OIL 60 GM OINT...G. TP SCH (10:35)
== END 2022-12-08 13:40 | disposition home or self-care (01) | DRG 871 ==
LOC: ER 15:48 → ERHOLD 18:06 → MED/SURG2 19:56 → INTOOBSV 12-02 12:59 → OBSVTOIN 12-02 12:59
PROVIDERS: ADMIT Internal Medicine; ATTEND Internal Medicine
PROC: 3E03329 Introduction of Other Anti-infective into Peripheral Vein, Percutaneous Approach (ICD-10-PCS; 2022-12-02)
PROC: 0DH60UZ Insertion of Feeding Device into Stomach, Open Approach (ICD-10-PCS; principal; 2022-12-05 12:46)
DX: A41.9 Sepsis, unspecified organism (principal); E43 Unspecified severe protein-calorie malnutrition; J18.9 Pneumonia, unspecified organism; Z68.1 Body mass index [BMI] 19.9 or less, adult; E87.1 Hypo-osmolality and hyponatremia; R65.20 Severe sepsis without septic shock; R62.7 Adult failure to thrive; F10.10 Alcohol abuse, uncomplicated; E03.9 Hypothyroidism, unspecified; S31.000A Unspecified open wound of lower back and pelvis without penetration into retroperitoneum, initial encounter; D63.8 Anemia in other chronic diseases classified elsewhere; Z86.16 Personal history of COVID-19; K22.2 Esophageal obstruction; Z93.0 Tracheostomy status; Z85.21 Personal history of malignant neoplasm of larynx
CPT/HCPCS: 36415; 71045; 74230; 80048; 80053; 80320; 81001; 82607; 82728; 82746; 83540; 83605; 83735; 84100; 84443; 84466; 85025; 85610; 85730; 87040; 87086; 87400; 93005; 94799; 99252; 99284; G0378; J0171; J0690; J0696; J1170; J1650; J2001; J2370; J2405; J3475; J7030; J7050